=== PATIENT | male | born 1935 | race African-American/Black ===

== ENCOUNTER 2024-03-18 06:45 | Emergency (ER) | payer MEDICARE, OTHER ==
[~2024-03-18] VITALS: Ht 182.9 cm; Wt 86.0 kg
[2024-03-18 06:58] VITALS: O2SAT 96
[2024-03-18 09:32] LABS: BASOPHILS % 0.9 % (0.0-2.0); EOSINOPHILS % 0.9 % (0.0-5.0); HEMOGLOBIN. 9.8 g/dL (14.0-18.0); LYMPHOCYTES % 17.2 % (20.0-50.0); MEAN CORPUSCULAR HEMOGLOBIN 30.2 pg (28.0-32.0); MEAN CORPUSCULAR HGB CONC 32.6 g/dL (31.0-37.0); MEAN CORPUSCULAR VOLUME 92.5 fL (80.0-94.0); MEAN PLATELET VOLUME 9.3 fl (7.4-10.4); MONOCYTES % 7.9 % (2.0-8.0); NEUTROPHILS % 73.1 % (40.0-76.0); PLATELET 125 x1000/uL (130-400); RED BLOOD CELL COUNT 3.25 mill/uL (4.7-6.1); RED CELL DISTRIBUTION WIDTH 14.7 % (11.6-14.6); WHITE BLOOD COUNT 4.5 x1000/uL (4.5-11.0)
[2024-03-18 09:38] LABS: CHLORIDE 96 mEq/L (98-107); POTASSIUM 3.2 mEq/L (3.5-5.1); SODIUM 136 mEq/L (136-145)
[2024-03-18 09:40] LABS: CALCIUM 9.7 mg/dL (8.7-10.4); CARBON DIOXIDE 32 mEq/L (21-32)
[2024-03-18] MEDS: SODIUM CHLORIDE 0.9% 500 ML IV ONE (09:44)
[2024-03-18 09:45] LABS: GLUCOSE 87 mg/dL (70-105)
[2024-03-18 09:46] LABS: UREA NITROGEN BLOOD 36 mg/dL (9-23)
[2024-03-18 09:47] LABS: ALANINE AMINOTRANSFERASE < 7 IU/L (10-49); ASPARTATE AMINOTRANSFERASE 15 IU/L (<34)
[2024-03-18 09:48] LABS: BILIRUBIN DIRECT 0.2 mg/dL (<=3.0); BILIRUBIN TOTAL 0.5 mg/dL (0.1-1.0); PROTEIN TOTAL 6.6 g/dL (6.0-8.3)
[2024-03-18 10:21] LABS: CLARITY URINE CLEAR (CLEAR); COLOR URINE YELLOW (YELLOW); GLUCOSE URINE NEGATIVE (NEGATIVE); KETONES URINE TRACE (NEGATIVE); LEUKOCYTE ESTERASE URINE TRACE (NEGATIVE); NITRITE URINE NEGATIVE (NEGATIVE); OCCULT BLOOD URINE 2+ (NEGATIVE); PH URINE 8.5 (4.5-8.0); PROTEIN URINE 2+ (NEGATIVE); SPECIFIC GRAVITY URINE 1.014 (1.005-1.030)
[2024-03-18 10:34] LABS: BACTERIA URINE NONE SEEN; RBC URINE 0-2 /hpf (0-2); SQUAMOUS EPITHELIAL CELL URINE 1+ /lpf (RARE/1+); YEAST URINE NONE SEEN
[2024-03-18 11:15] LABS: CREATININE 9.5 mg/dL (0.6-1.3)
[2024-03-18 11:16] LABS: TROPONIN I HIGH SENSITIVITY 76 ng/L (3.0-53)
[2024-03-18] MEDS: CLONIDINE 0.1MG TABLET PO ONE (13:26)
[2024-03-18] MEDS ORDERED: AMLO5TAB88 MT (15:16)
[2024-03-18 16:19] VITALS: BP 141/61; PULSE 72; RESP 13; TEMP 98
== END 2024-03-18 16:22 | disposition home or self-care (01) ==
LOC: ER 06:45
DX: R42 Dizziness and giddiness (principal); I12.0 Hypertensive chronic kidney disease with stage 5 chronic kidney disease or end stage renal disease; N18.6 End stage renal disease
CPT/HCPCS: 99285; 71045; 80076; 80048; 81003; 85025; 84484; 36415; 93005; J7040; 96360